=== PATIENT | female | born 1950 | race Caucasian/White ===

== ENCOUNTER 2019-11-23 10:00 | Day surgery (SDC) | payer MEDICARE, BC, SELFPAY ==
--- NOTE | 2019-11-23 10:21 | DI.CT_ITS ---
EXAM: CT UPPER EXTREMITY LT WO CLINICAL HISTORY: comminuted intraarticular left wrist fracture. TECHNIQUE: Imaging Protocol: Axial computed tomography images with coronal and sagittal reformatted images were created and reviewed. COMPARISON: No exams were available for comparison FINDINGS: Bones: There is a comminuted intra-articular fracture of the distal radius. There is impaction and dorsal angulation of the fracture. There is a fracture of the ulnar styloid process with dorsal disp lacement of the distal fracture fragment. Carpal bone alignment is within normal limits. No celluli tic or osteomyelitic changes are identified. Degenerative changes are seen in the wrist. Findings a re most marked at the 1st CMC joint where there is joint space narrowing, subchondral sclerosis and p eriarticular spurring. No lytic or sclerotic lesions are identified. There are few tiny osteophytic densities present in in the carpus which appear to be chronic. Soft Tissues: There is soft tissue swelling of the distal forearm and wrist. IMPRESSION: 1. Comminuted intra-articular displaced fracture of the distal radius. 2. Displaced ulnar styloid process fracture. RADIATION DOSE DELIVERED: 159.83mGy.cm Total DLP 159.83mGy.cm Total DLP DATA REPOSITORY: All CT scans at this facility are submitted to the National Radiology Data Registry (NRDR) Dose Index Registry (DIR) with the [employer] [place] [employer] ([employer]). RADIATION OPTIMIZATION: All CT scans at this facility use at least one of these dose optimization te chniques: automated exposure control; mA and/or kV adjustment per patient size (includes targeted exa ms where dose is matched to clinical indication); or iterative reconstruction.
[2019-11-23 10:41] VITALS: BP 128/85; PULSE 114; RESP 18; TEMP 36.7; O2SAT 94
[2019-11-23] MEDS: Lactated Ringers 1,000 ML 80 ML IV ×2 (11:05→14:17)
--- NOTE | 2019-11-23 11:24 | HPE_ITS ---
Documented by User: [email or web address] Tanner 11/23/19 11:38 Assessment and Plan Assessment and plan (1) Fracture of left distal radius: Status: Acute Assessment and plan: ORIF Left distal radius. Details of surgery were discussed with patient as well as risks and pertinent anatomy. All questions were answered. History of Present Illness History of Present Illness Chief Complaint: Left wrist injury Narrative: Sosa is a 69 year old female who comes in today for an ORIF of her left distal radius. She states that about two days ago she was stepping out of her car when she fell landing on an outstretched left hand. She had immediate pain and went to the ER where she had x-rays which showed a fracture of the left distal radius that is significantly angulated dorsally and shortened. Due to the deformity, Dr. Crews recommends an ORIF of her left wrist, and she is anxious to proceed. Pertinent Surgical Information Patient denies history of CVA, OR, angina, asthma, COPD, renal or liver disorders, hepatitis, bleeding disorders, immune or thyroid disorders. No complications from anesthesia. Review of Systems Constitutional Constitutional: Denies fever(s) ENT Ears, Nose, Mouth, and Throat: Denies dizziness and Denies sore throat Cardiovascular Cardiovascular: Denies chest pain, Denies palpitations and Denies dyspnea Respiratory Respiratory: Denies cough and Denies dyspnea Gastrointestinal Gastrointestinal: Denies abdominal pain, Denies melena, Denies hematochezia, Den ies diarrhea, Denies nausea and Denies vomiting Genitourinary Genitourinary: Denies hematuria and Denies dysuria Neurologic Neurologic: Denies dizziness Endocrine Endocrine: Denies palpitations [facility] Medical History (Updated 11/23/19 @ 11:34 by [email or web address] Tanner) Diabetes mellitus High cholesterol Hypertension Surgical History (Updated 11/23/19 @ 10:40 by Pippa Bonilla) History of cataract surgery History of knee replacement right 11/25 Social History Smoking/Tobacco Use Status: Never Alcohol Intake: current Alcohol Intake frequency: holidays/special occasions only Substance use type: does not use Do you feel safe at home: Yes Meds Home Medications and Allergies Home Medications Medication Instructions Recorded Confirmed Type Basaglar KwikPen U-100 Insulin 41 unit SUBCUT DAILY 11/23/19 11/23/19 History Restasis 1 drp OPHTHALMIC (EYE) BID 11/23/19 11/23/19 History acetaminophen 500 mg PO Q6H PRN PRN #40 tab 11/23/19 Rx hydrocodone-acetaminophen 1 tab PO Q6H PRN PRN #12 tab 11/23/19 Rx ibuprofen 600 mg PO TID PRN #30 tab 11/23/19 Rx lisinopril-hydrochlorothiazide 1 tab PO DAILY 11/23/19 11/23/19 History metformin 500 mg PO BID 11/23/19 11/23/19 History potassium chloride 10 meq PO BID 11/23/19 11/23/19 History simvastatin 20 mg PO QPM 11/23/19 11/23/19 History Allergies Allergy/AdvReac Type Severity Reaction Status Date / Time No Known Allergies Allergy Unverified 11/23/19 10:30 Exam Const General: cooperative and no acute distress Orientation: alert and awake HENWY Head: normocephalic and atraumatic Eyes Conjunctivae: conjunctivae normal Sclera: sclerae normal Resp Effort & Inspection: normal respiratory effort Auscultation: clear to auscultation bilaterally and no wheezes Cardio Rate: regular rate Rhythm: regular rhythm Heart Sounds: S1 normal, S2 normal and no murmurs GI Palpation: soft, no hepatosplenomegaly and nontender Auscultation: normal bowel sounds Results Last Vital Signs Temp 98.1 F 11/23/19 10:41 Pulse 114 H 11/23/19 10:41 Resp 18 11/23/19 10:41 BP 128/85 11/23/19 10:41 Pulse Ox 94 11/23/19 10:41 Documented by User: Demetrio Crews MD 11/26/19 09:56 Assessment and Plan Assessment and plan (1) Fracture of left distal radius: Status: Acute Assessment and plan: Sosa is a 69-year-old who suffered a fall onto the outstretched left hand with a significantly comminuted displaced distal radius fracture. Given the severity of the deformity and the multiple pieces including intra-articular split, I recommended operative fixation. She is right-hand dominant and 69 years old, but otherwise active. She agreed to proceed with the operation. We reviewed the risks which include bleeding, infection, pain, stiffness, nonunion, nonunion, recurrence, heart failure, tendon injury or delayed tendon rupture, damage to nerves and vessels, need for repeat procedures. Despite these risk, she elected to proceed. [facility] Medical History (Updated 11/23/19 @ 11:34 by [email or web address] Tanner) Diabetes mellitus High cholesterol Hypertension Surgical History (Updated 11/23/19 @ 10:40 by Pippa Bonilla) History of cataract surgery History of knee replacement right 11/25 Social History Smoking/Tobacco Use Status: Never Alcohol Intake: current Alcohol Intake frequency: holidays/special occasions only Substance use type: does not use Do you feel safe at home: Yes Meds Home Medications and Allergies Home Medications Medication Instructions Recorded Confirmed Type Basaglar KwikPen U-100 Insulin 41 unit SUBCUT DAILY 11/23/19 11/23/19 History Restasis 1 drp OPHTHALMIC (EYE) BID 11/23/19 11/23/19 History acetaminophen 500 mg PO Q6H PRN PRN #40 tab 11/23/19 Rx hydrocodone-acetaminophen 1 tab PO Q6H PRN PRN #12 tab 11/23/19 Rx ibuprofen 600 mg PO TID PRN #30 tab 11/23/19 Rx lisinopril-hydrochlorothiazide 1 tab PO DAILY 11/23/19 11/23/19 History metformin 500 mg PO BID 11/23/19 11/23/19 History potassium chloride 10 meq PO BID 11/23/19 11/23/19 History simvastatin 20 mg PO QPM 11/23/19 11/23/19 History Allergies Allergy/AdvReac Type Severity Reaction Status Date / Time No Known Allergies Allergy Unverified 11/23/19 10:30
--- NOTE | 2019-11-23 13:00 | DI.RAD_ITS ---
EXAM: XR WRIST LT LIMITED CLINICAL HISTORY: left wrist fracture TECHNIQUE: 2D and realtime digital imaging was performed. CONTRAST MATERIAL: Refer to procedure report. COMPARISON: No exams were available for comparison FINDINGS: Fluoroscopy was provided for Dr. Crews during the performance of a reduction and internal fixatio n of the distal radial fracture.. Please refer to the procedure report for complete details. Fluoro time: 1 minutes 17 seconds IMPRESSION: RADIATION DOSE DELIVERED:
[2019-11-23] MEDS: Bupivacaine 0.5% Pres-Free 30 ML VIAL IV (13:06)
[2019-11-23] MEDS: Bupivacaine LIPOSOME/PF 133 MG/10 ML VIAL IJ (13:06)
[2019-11-23] MEDS: ceFAZolin 2 GM/50 ML BAG IVPB (13:38)
[2019-11-23] MEDS: Bupivacaine 0.5% Pres-Free 30 ML VIAL (14:18)
--- NOTE | 2019-11-23 15:27 | PDOC.DSDIS_ITS ---
Discharge Plan Disposition Patient Disposition: HOME Condition: Good Discharge Details Reason For Visit: L WRIST FX Attending Provider: Demetrio Crews Primary Care Provider: No,Local Home Meds and New Rx's Prescriptions: New acetaminophen 500 mg tablet 500 mg PO Q6H PRN PRN (Reason: pain) Qty: 40 RF: 3 hydrocodone-acetaminophen 5-325 mg tablet 1 tab PO Q6H PRN PRN (Reason: pain) Qty: 12 RF: 0 ibuprofen 600 mg tablet 600 mg PO TID PRNQty: 30 RF: 3 Continued metformin 500 mg Tablet 500 mg PO BID RF: 0 simvastatin 20 mg Tablet 20 mg PO QPM RF: 0 lisinopril-hydrochlorothiazide 20-25 mg Tablet 1 tab PO DAILY RF: 0 potassium chloride 10 mEq Capsule, Extended Release 10 meq PO BID RF: 0 Basaglar KwikPen U-100 Insulin 100 unit/mL (3 mL) Insulin Pen 41 unit SUBCUT DAILY RF: 0 Restasis 0.05 % Dropperette 1 drp ophthalmic (eye) BID RF: 0 Discharge Instructions Additional Instructions: Activity: You should keep the hand/wrist elevated as much as possible for the first few days. You may use the other fingers as tolerated but avoid trying to do too much too soon. You may perform light activities with the splint in place. Dressing/Cast: Your splint should stay in place at all times. Do NOT get it wet. You may loosen the EDEN wrap if you feel it is too tight and then rewrap more loosely. Medications: - You should take Tylenol and Ibuprofen for baseline pain control. - You have been prescribed a stronger pain medication, Hydrocodone, for breakthrough pain. - You may apply ice over the wrist, just double bag so it doesn't get wet. Follow-up: , 11/30 Referrals: Demetrio Crews MD [ [facility]FF [facility]YSICIAN] - Equipment/Supplies: Splint and Sling Activity:: Elevate Remove Dressings/Wound Care:: Do Not Remove Shower/Bathe:: Cover Diet:: As Tolerated Discharge Orders Discharge Orders: Discharge Order (Routine); Ordered 11/23/19 Ordered By: Demetrio Crews DS: Diagnosis Discharge Diagnosis (1) Fracture of left distal radius: Status: Acute
[2019-11-23 15:32] VITALS: BP 83/52; PULSE 77; RESP 8; TEMP 36.7; O2SAT 99
[2019-11-23 15:36] VITALS: BP 87/52; PULSE 67; RESP 10; TEMP 36.7; O2SAT 95
[2019-11-23 15:38] VITALS: BP 102/65; PULSE 67; RESP 12; TEMP 36.7; O2SAT 98
[2019-11-23 16:22] VITALS: BP 110/62; PULSE 74; RESP 17; TEMP 35.7; O2SAT 97
--- NOTE | 2019-11-24 07:34 | W.PM.OP ---
Date of service: 11/23/19 Time of Service: 15:34 Operative Note Operative Note DATE OF PROCEDURE: 11/23/19 PRE-OP DIAGNOSIS: Left Distal Radius Fracture POST-OP DIAGNOSIS: same PROCEDURE: Open Reduction and Internal Fixation of left distal Radius Fracture SURGEON: Demetrio Crews STRATEGIC PLANNING MANAGER: Ailyn Post ANESTHESIA: GETA and regional ESTIMATED BLOOD LOSS: 10 PATHOLOGY: none sent TOURNIQUET TIME: 62 COMPLICATIONS: None Patient was transported to: PACU Patient's condition: stable Implants: Synthes 2.7 mm variable angle narrow 3-hole distal radius plate Indications: Sosa is a 69-year-old female who fell and suffered a comminuted displaced left distal radius and ulna fracture. I was called by the emergency department of [facility] for telephone consultation. Given time constraints I saw her the morning of the procedure after talking to her over the phone prior. Given the displacement of this radius fracture I did recommend surgical reduction and stabilization. I reviewed the risk of the procedure to include bleeding, infection co-pay, stiffness, damage to nerves and vessels, damage to muscles and tendons, malunion, nonunion, hardware prominence, tendon rupture, need for repeat procedures. Despite these risks, the patient elected to proceed. Findings: There is a distal radius fracture which had greater than 3 parts. It was reduced and fixed with a Synthes volar locking plate. Procedure Description: Sosa was greeted in the preoperative holding area. The correct patient and site was confirmed and marked. The history and physical was updated. The consent was reviewed the patient and signed. The patient was taken to the PACU for administration of regional anesthetic, infraclavicular block. The patient was taken to the operating room and placed in the supine position. All bony problems were well-padded. The left arm was placed onto a radiolucent hand table. A nonsterile tourniquet was placed high up on the arm. Prophylactic antibiotics in the form of cefazolin were administered. The left arm was prepped with ChloraPrep and draped in a standard fashion. A timeout was performed for safe surgery. A standard longitudinal incision was made overlying the flexor carpi radialis tendon starting at the distal wrist crease and moving proximally. The skin was incised sharply. The flexor carpi radialis tendon and its sheath is identified. The sheath was opened. The tendon was moved ulnarly in the floor of the sheath was incised. Blunt dissection the flexor pollicis longus muscle belly and tendon were also made radially exposing the pronator quadratus and the distal radius. The printer quadratus was elevated with an ulnar-based flap. This exposed the volar distal radius and the fracture. Given the fracture pattern and radial styloid involvement, the brachioradialis was released enough for adequate mobilization of the radial styloid fragment. A perdomo elevator was used for full exposure of the volar surface of the distal radius. The primary fracture line was exposed. Using a series of elevators, curettes, and knife, the fracture was fully debrided of any fibrous tissue and callus formation. I used a freer elevator to help mobilize the fragments. There is a large radial styloid piece and an ulnar piece. There is also separation within the joint between the dorsal and volar segments. I then performed a closed reduction. Using gentle traction and fracture manipulation, this reduction was held. Fluoroscopic images were used to confirm adequate reduction. However, it was grossly unstable. The split between the volar and dorsal segments was able to be maintained with direct pressure from anterior to posterior. Therefore, I placed a single K wire through the tip of the radial styloid holding it reduced and driving that K wire through the proximal radial shaft. This helped hold the general position of the wrist fracture and also maintain our height and radial inclination. With manual pressure otherwise holding the split together the reduction seem to be more than appropriate. An appropriately sized Synthes volar locking plate, narrow 3 hole, was then placed onto the bony surface of the distal radius. Was then held there with a distal radius clamp sandwiching the plate to the distal segment. A single K wire was placed through the distal end to confirm appropriate positioning. Fluoroscopy was once again used to confirm appropriate positioning of the plate on the distal radius. A reduction K wire was placed into the slotted hole on the shaft but not tightened all the way to allow for manipulation of the distal segment onto the proximal shaft. With the position of the plate confirmed and the reduction appearing to be acceptable, I went ahead and proceeded with placing locking screws distally. The plate was secured to the surface of the volar distal radius using the clamp and manual pressure. 2 screws were placed in the ulnar aspect of the plate and once again fluoroscopy was used to confirm appropriate positioning before proceeding with placement of the remainder of the screws. The bone quality was quite poor and therefore I continued with locking screws as long as possible without penetrating the dorsal bone. The remainder of the screws within the volar locking plate were filled with locking screws. These were made sure not to penetrate the dorsal cortex. Once these were applied the proximal portion of the plate was further reduced down onto the shaft, which further reduce the distal segment. This was held in position with a tightened reduction K wire. Fluoroscopy was then used against confirm appropriate reduction. Nonlocking screws were placed within the 3 shaft screw holes. Final x-rays were obtained which demonstrated adequate reduction and positioning of hardware. The dorsal sunrise view was also obtained to ensure correct sizing of screws. The wound was then thoroughly irrigated. The pronator quadratus was reapproximated with a 0 Vicryl. The tourniquet was released and there was no notable vascular injury or significant bleeding. The fingers were warm and well-perfused. The deep dermal layer was closed with a 2-0 Vicryl. The skin was closed with 4-0 Monocryl in a running subcuticular pattern. The wound was dressed with Xeroform, 4 x 4's, web roll. A short arm splint was applied. At the end the case all counts are correct. Patient was transferred back to the PACU in stable condition.
== END 2019-11-23 16:50 | disposition home or self-care (01) ==
LOC: SUR 11-24 07:58
PROVIDERS: Visit Provider Student in an Organized Health Care Education/Training Program
PROC: (CPT 25607; principal; 2019-11-23 14:00)
DX: S52.502A Unspecified fracture of the lower end of left radius, initial encounter for closed fracture (principal); S52.592A Other fractures of lower end of left radius, initial encounter for closed fracture; W18.39XA Other fall on same level, initial encounter; E11.9 Type 2 diabetes mellitus without complications; Z79.4 Long term (current) use of insulin
CPT/HCPCS: 25607; 76000; 76942; NC; 73100; 73200; J0690; J1100; J1885; J2001; J2250; J2405; L3650

== ENCOUNTER 2019-12-01 11:56 | Outpatient (CLI) | payer MEDICARE, BC, SELFPAY ==
--- NOTE | 2019-12-01 11:45 | DI.RAD_ITS ---
EXAM: XR WRIST LT COMPLETE INDICATION: f/u fracture. COMPARISON: CR XR WRIST LT LIMITED from 11/23/2019 TECHNIQUE: 2D digital imaging was performed. FINDINGS: A volar fixation plate is again noted along the distal radius for fracture fixation. There has been no change in fracture or hardware alignment. DATA REPOSITORY: RADIATION DOSE DELIVERED:
== END 2019-12-01 12:16 ==
PROVIDERS: Visit Provider Student in an Organized Health Care Education/Training Program
DX: S52.592A Other fractures of lower end of left radius, initial encounter for closed fracture (principal); S52.502D Unspecified fracture of the lower end of left radius, subsequent encounter for closed fracture with routine healing; X58.XXXD Exposure to other specified factors, subsequent encounter
CPT/HCPCS: 73110